=== PATIENT | female | born 1990 | race Caucasian/White ===

== ENCOUNTER 2024-09-28 21:42 | Emergency (ER) | payer BC ==
[~2024-09-28] VITALS: Ht 157.5 cm; Wt 61.0 kg
[2024-09-28 21:57] VITALS: TEMP 37.1; O2SAT 100
[2024-09-28] MEDS: ONDANSETRON 4MG ODT PO ONE (22:48)
[2024-09-28] MEDS: SODIUM CHLORIDE 0.9% 1,000 ML IV ONE (22:57)
[2024-09-29 00:08] LABS: BASOPHILS % 0.7 % (0.0-2.0); EOSINOPHILS % 3.1 % (0.0-5.0); HEMATOCRIT. 33.7 % (36.0-48.0); HEMOGLOBIN. 11.3 g/dL (12.0-16.0); LYMPHOCYTES % 23.5 % (20.0-50.0); MEAN PLATELET VOLUME 8.9 fl (7.4-10.4); MONOCYTES % 10.0 % (2.0-8.0); NEUTROPHILS % 62.7 % (40.0-76.0); PLATELET 220 x1000/uL (130-400); RED BLOOD CELL COUNT 3.88 mill/uL (4.2-5.4); RED CELL DISTRIBUTION WIDTH 14.8 % (11.6-14.6)
[2024-09-29 00:15] LABS: CREATININE 0.7 mg/dL (0.6-1.0); UREA NITROGEN BLOOD 12 mg/dL (9-23)
[2024-09-29] MEDS: ONDANSETRON HCL 4MG/2ML INJ IV ONE (00:16)
[2024-09-29 00:32] LABS: B-HCG QUANTITATIVE 75278 mIU/mL (<6)
[2024-09-29] MEDS: ONDANSETRON 4MG ODT PO ONE (01:14)
[2024-09-29] MEDS ORDERED: ONDA-239 PO (01:21)
[2024-09-29 01:54] VITALS: BP 114/79; PULSE 71; RESP 16; O2SAT 100
== END 2024-09-29 01:58 | disposition home or self-care (01) ==
LOC: ER 21:42
DX: O21.9 Vomiting of pregnancy, unspecified (principal); O26.891 Other specified pregnancy related conditions, first trimester; N89.8 Other specified noninflammatory disorders of vagina; Z98.890 Other specified postprocedural states; Z79.899 Other long term (current) drug therapy; Z3A.01 Less than 8 weeks gestation of pregnancy
CPT/HCPCS: 99284; 96360; 76801; 80048; 84702; 85025; 86850; 86900; 86901; 36415; 76817; Q0162 ×2; J7030